=== PATIENT | male | born 2005 | race Caucasian/White ===

== ENCOUNTER → 2023-12-10 06:38 | Outpatient (REF) | payer BC, SELFPAY | LOC: MRI 06:38 | PROVIDERS: ATTENDING PHYSICIAN Family Medicine | DX: M25.362 Other instability, left knee (principal); M25.562 Pain in left knee; Z87.828 Personal history of other (healed) physical injury and trauma | CPT/HCPCS: 73721 ==

== ENCOUNTER 2024-01-14 06:15 | Day surgery (SDC) | payer BC, SELFPAY ==
[2024-01-14] VITALS (7 sets, daily range): BP systolic 116–150; BP diastolic 55–93
[2024-01-14] MEDS: NORMOSOL-R 1000 IV (08:17)
[2024-01-14] MEDS: TYLENOL 1000 MG PO (08:24)
== END 2024-01-14 10:57 | disposition home or self-care (01) ==
LOC: SDS 06:15
PROVIDERS: ATTENDING PHYSICIAN Orthopaedic Surgery
DX: S83.212A Bucket-handle tear of medial meniscus, current injury, left knee, initial encounter (principal); M23.022 Cystic meniscus, posterior horn of medial meniscus, left knee; X58.XXXA Exposure to other specified factors, initial encounter
CPT/HCPCS: 29881